=== PATIENT | male | born 2000 | race Caucasian/White ===

== ENCOUNTER 2023-05-31 13:08 | Emergency (ER) | payer BC, SELFPAY ==
[2023-05-31 13:10] VITALS: BP 109/68; PULSE 80; RESP 20; TEMP 36.4; O2SAT 100; O2SAT 99
--- NOTE | 2023-05-31 13:23 | ED_ITS ---
HPI - General Adult General Chief complaint: Upper Respiratory Infection Stated complaint: FLU Time Seen by Provider: 05/31/23 13:18 History of Present Illness HPI narrative: this is a 23-year-old male presenting 4 days of flu-like symptoms. Sxs include, cough, body aches and generally feeling unwell. He did have an episode of dizziness today which prompted him to come to the emergency department. Patient denies fevers chest pain difficulty breathing abdominal pain nausea vomiting diarrhea. Related Data Allergies Allergy/AdvReac Type Severity Reaction Status Date / Time No Known Allergies Allergy Verified 05/31/23 13:26 Exam Narrative: APPEARANCE: No apparent distress. Head: cerumen impaction bilaterally, mild erythema posterior oropharynx without exudates EYES: EOMI, NOSE: Atraumatic NECK: Trachea midline RESPIRATORY: No increased rate of breathing , clear to auscultation CARDIOVASCULAR: RRR, ABDOMINAL: Non-distended, soft nontender MUSCULOSKELETAl: No obvious deformities NEURO: Alert. Moving 4/4 extremities SKIN:: Warm, dry. Normal color PSYCHIATRIC: Normal affect Medical Decision Making MDM Narrative Medical decision making narrative: -Course: 23-year-old male presenting with 4 days of flu-like symptoms and flu exposure at home. Flu B positive. Patient outside of the window for Tamiflu. Given Motrin Tylenol and dexamethasone. Discharged with return precautions. 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 -Independent interpretation of studies: flu B positive -Interventions: Motrin Tylenol dexamethasone -Shared decision making / Disposition: discharged Discharge Plan Discharge Clinical Impression: Flu Patient Disposition: Home, Self-Care Condition: Stable Instructions: Antibiotic Form, Influenza (DC) Additional Instructions: Please take Motrin Tylenol for fevers and body aches. Make sure you are drinking plenty of fluids. Please follow-up your primary care physician as needed. Prescriptions: New ibuprofen 800 mg tablet 800 mg PO TID PRN (Reason: pain) 7 Days Qty: 21 0RF acetaminophen 500 mg tablet 1,000 mg PO TID PRN (Reason: susu) 7 Days Qty: 42 0RF Follow-up/Referrals: UNKNOWN,DOCTOR [Primary Care Provider] - Stand Alone Forms: Work/School Release IP
[2023-05-31] MEDS: IBUPROFEN 400 MG TABLET 800 MG PO (13:45)
[2023-05-31] MEDS: dexAMETHasone SOD PHOS INJ 10 MG/ML 1 ML VIAL IM (13:46)
[2023-05-31] MEDS: ACETAMINOPHEN 500 MG TABLET 1000 MG PO (13:46)
[2023-05-31 13:53] LABS: Influenza A QL RT-PCR Negative (Negative); Influenza B QL RT-PCR Positive (Negative); RSV RNA, RT-PCR Negative (Negative); SARS-CoV-2 RNA PCR Negative (Negative)
[2023-05-31 14:25] VITALS: BP 110/68; PULSE 80; RESP 20; TEMP 36.7; O2SAT 100
== END 2023-05-31 14:25 | disposition home or self-care (01) ==
PROVIDERS: Emergency Provider Emergency Medicine
DX: J10.1 Influenza due to other identified influenza virus with other respiratory manifestations (principal); Z20.822 Contact with and (suspected) exposure to COVID-19
CPT/HCPCS: 87637; 96372; 99283; A9270; J1100